=== PATIENT | male | born 1965 | race Caucasian/White ===

== ENCOUNTER 2018-08-29 11:06 | Inpatient (IN) | payer BC ==
--- NOTE | 2018-08-29 12:30 | EDM.PDOC ---
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 He was treated with IV immunoglobulin, but not plasmapheresis. His symptoms have progressively improved, although he is left with right foot paresthesia, bilateral lower extremity weakness, and right hand weakness. The patient walks with a cane. The patient states that he developed cold-like symptoms, including sinus pressure, a cough, and sneezing in June 2018. He saw his PCP around the middle of June. He states that no tests were done, and that he was told that he had a viral illness. An antibiotic, the name of which he does not recall, was prescribed for 10 days, that the patient took as prescribed. He also tried some [id number] sinus, cough, and cold medicines, without relief of symptoms. He then went to the [place] walk in clinic in early July. Again no tests were done, and the patient was again told that he had a viral illness versus seasonal allergies. They recommended nasal flushes and Flonase. The patient still had no relief, therefore he went back to his PCP in mid-July. He states that no tests were done, and no prescriptions were given. He then returned to the the walk-in clinic in late July. Again, he states that no tests were done, and he was again diagnosed with seasonal allergies versus a viral illness. They told him it could last up to 3 months. The patient reports a 10 to 15 pound weight loss since June. He reports myalgias in his shoulders and buttocks, and arthralgias in his shoulders and elbows. 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 His eye pressure has come down from 20 mm Hg to 14 mm Hg, and his prednisolone has been tapered. He reports several episodes of epistaxis since July. Is unclear if he has been experiencing any wheezing; he does not have a history of asthma. He denies Raynaud's phenomenon or abdominal pain. The patient states that over the past 2 weeks, he has developed generalized weakness, dyspnea, oral ulcers, a cough productive of clear sputum, nausea, and anorexia. This past 08/26/2018, he developed numerous purplish lesions on the sole of his distal left foot and under the first MTP of his right foot. He reports pain to his distal left foot, although there is still some paresthesia to the area. He continues to have unimproved paresthesia to his right foot, therefore he does not have pain to his right foot. The patient's PCP is Manny Gonzáles NP, in [place]. The patient would like a referral to a PCP here in [place]. The patient's Neurologist is Dr. Juan David Babin, in [place]. - Related Data Allergies Allergy/AdvReac Type Severity Reaction Status Date / Time No Known Allergies Allergy Verified 08/29/18 11:17 Past Medical History Gastrointestinal History: Reports: GERD Neurological History: Reports: Other (See Below) (Guillain-Bennett diagnosed 2016 , status-post IVIG) Psychiatric History: Reports: Anxiety, Depression - Past Surgical History HEENT Surgical History: Reports: Tonsillectomy Social & Family History - Tobacco Use Smoking Status *Q: Never Smoker Second Hand Smoke Exposure: Yes - Caffeine Use Caffeine Use: Reports: None - Alcohol Use Alcohol Use History: Yes Alcohol Use Frequency: Rarely - Recreational Drug Use Recreational Drug Use: No - Living Situation & Occupation Living situation: Reports: , with Spouse Occupation: Disabled ED ROS GENERAL - Review of Systems Review Of Systems: ROS reveals no pertinent complaints other than HPI. ED EXAM, GENERAL - Physical Exam Exam: See Below Exam Limited By: No Limitations General Appearance: Alert, WD/WN, No Apparent Distress Eye Exam: Bilateral Eye: EOMI, Normal Inspection Ears: Normal External Exam, Normal Canal, Hearing Grossly Normal, Other (Right tympanic membrane likely bulging with clear fluid. No erythema.) Nose: Normal Inspection, Normal Mucosa, No Blood Throat/Mouth: Normal Lips, Normal Teeth, Normal Gums, Normal Voice, No Airway Compromise, Other (There are 3 apthous ulcers; one on each of the underside of his tongue, one on the right buccal membrane of his cheek) Head: Atraumatic, Normocephalic Neck: Normal Inspection, Supple, Non-Tender, Full Range of Motion. No: Lymphadenopathy (L), Lymphadenopathy (R) Respiratory/Chest: No Respiratory Distress, Lungs Clear, Normal Breath Sounds, No Accessory Muscle Use, Crackles (fine bibasilar, Rt > Lt). No: Decreased Breath Sounds, Rhonchi, Wheezing, Prolonged Expiration Cardiovascular: Normal Peripheral Pulses, No Edema, No Gallop, No JVD, No Murmur , No Rub, Tachycardia (regular) Peripheral Pulses: 1+: Posterior Tibial (L), Posterior Tibial (R), Dorsalis Pedis (L), 4+: Radial (L), Radial (R), Dorsalis Pedis (R) GI/Abdominal: Normal Bowel Sounds, Soft, No Organomegaly, No Distention, No Abnormal Bruit, No Mass, Tender (Mild RUQ only. Nontender elsewhere.) (Male) Exam: Deferred Rectal (Males) Exam: Deferred Back Exam: Normal Inspection, Full Range of Motion, NT Extremities: Normal Range of Motion, No Pedal Edema, Normal Capillary Refill, Other (On the distal half of the sole of the patient's left foot, there are numerous purple lesions, barely palpable. Some are pinpoint, some as large as 8 mm, while most are between 3-5 mm in diameter. There is also generalized dusky ecchymosis, particularly to the lateral aspect of the sole of foot, which extends around the purpuric lesions, giving the illusion of confluence. There are only a few lesions on the dorsal aspect of the toes. The patient reports pain to the distal left foot, although he is unable to discriminate whether or not there is tenderness to palpation of the purpuric lesions versus in between the purpuric lesions. The distal left foot is cool to palpation, and I cannot determine capillary refill time. On the sole of the right foot is a single purple lesion, under the first MTP joint. It measures about 1.5 cm in diameter, and is depressible on palpation. The patient reports near complete anesthesia to the distal right foot, therefore it is not tender to palpation. The distal right foot is similarly cool to palpation and is similarly difficult to perceive capillary refill time. There is a bounding right dorsalis pedis pulse, but minimal palpable right posterior tibialis, left dorsalis pedis, or left posterior tibialis pulses.) Neurological: Alert, Oriented, Normal Cognition Psychiatric: Normal Affect Skin Exam: Warm, Dry, Intact, Normal Color, No Rash Course - Vital Signs Last Recorded V/S: Last Vital Signs Temp 36.4 C 08/29/18 11:15 Pulse 114 H 08/29/18 11:15 Resp 16 08/29/18 11:15 BP 144/95 H 08/29/18 11:15 Pulse Ox 94 L 08/29/18 11:15 - Orders/Labs/Meds Orders: Active Orders 24 hr Category Date Time Status ANTIMYELOPEROXIDASE (MPO) ABS [REF] Stat Lab 08/29/18 12:50 Received CULTURE BLOOD [BC] Stat Lab 08/29/18 12:50 Received CULTURE BLOOD [BC] Stat Lab 08/29/18 12:55 Received IGG, SUBCLASSES(1-4) [REF] Stat Lab 08/29/18 12:55 Received IMMUNOGLOBULIN A [REF] Stat Lab 08/29/18 12:55 Received IMMUNOGLOBULIN E, TOTAL [REF] Stat Lab 08/29/18 12:50 Received MISC TEST Stat Lab 08/29/18 12:55 Received Sodium Chloride 0.9% @ 150 MLS/HR (1000ml Bag) Med 08/29/18 19:15 Ordered Sodium Chloride 0.9% [Normal Saline] 1,000 ml IV ASDIRECTED Blood Culture x2 Reflex Set [OM.PC] Stat Oth 08/29/18 11:58 Ordered Medication Orders Sodium Chloride (Normal Saline) 1,000 mls @ 150 mls/hr IV ASDIRECTED GERMANIA Last Admin: 08/29/18 19:25 Dose: 150 mls/hr Labs: Laboratory Tests 08/29/18 08/29/18 08/29/18 Range/Units 12:50 12:50 12:50 WBC 15.04 H (4.23-9.07) K/mm3 RBC 4.10 L (4.63-6.08) M/mm3 Hgb 10.8 L (13.7-17.5) gm/L Hct 34.4 L (40.1-51.0) % MCV 83.9 (79.0-92.2) fl MCH 26.3 (25.7-32.2) pg MCHC 31.4 L (32.2-35.5) g/dl RDW Std Deviation 45.2 H (35.1-43.9) fL Plt Count 763 H (163-337) K/mm3 MPV 8.8 L (9.4-12.3) fl Neutrophils % (Manual) 81 H (40-60) % Band Neutrophils % 0 (0-10) % Lymphocytes % (Manual) 6 L (20-40) % Atypical Lymphs % 0 % Monocytes % (Manual) 7 (2-10) % Eosinophils % (Manual) 5 (0.8-7.0) % Basophils % (Manual) 1 (0.2-1.2) Platelet Estimate Adequate Hypochromasia 1+ slight Anisocytosis 2+ moderate RBC Morph Comment Abnormal ESR 102 H (0-15) mm/hr PT (9.5-12.1) SECONDS INR APTT (24-31) SECONDS Fibrin Degrad Products (<5) ug/mL Sodium 136 (136-145) mEq/L Potassium 4.0 (3.5-5.1) mEq/L Chloride 100 (98-107) mEq/L Carbon Dioxide 21 (21-32) mEq/L Anion Gap 19.0 H (5-15) BUN 53 H (7-18) mg/dL Creatinine 4.6 H (0.7-1.3) mg/dL Est Cr Clr Drug Dosing 21.47 mL/min Estimated GFR (MDRD) 14 (>60) mL/min BUN/Creatinine Ratio 11.5 L (14-18) Glucose 107 H (74-106) mg/dL Calcium 8.6 (8.5-10.1) mg/dL Magnesium 2.4 (1.8-2.4) mg/dl Total Bilirubin 1.0 (0.2-1.0) mg/dL AST 22 (15-37) U/L ALT 27 (16-63) U/L Alkaline Phosphatase 234 H (46-116) U/L C-Reactive Protein (<1.0) mg/dL Total Protein 7.9 (6.4-8.2) g/dl Albumin 2.1 L (3.4-5.0) g/dl Globulin 5.8 gm/dL Albumin/Globulin Ratio 0.4 L (1-2) Urine Color (Yellow) Urine Appearance (Clear) Urine pH (5.0-8.0) Ur Specific [place] (1.005-1.030) Urine Protein (Negative) Urine Glucose (UA) (Negative) Urine Ketones (Negative) Urine Occult Blood (Negative) Urine Nitrite (Negative) Urine Bilirubin (Negative) Urine Urobilinogen (0.2-1.0) Ur Leukocyte Esterase (Negative) Urine RBC (0-5) /hpf Urine WBC (0-5) /hpf Ur Squamous Epith Cells (0-5) /hpf Urine Bacteria (FEW) /hpf Urine Mucus (FEW) /hpf Rheumatoid Factor Scrn (NEGATIVE) Rheumatoid Factor Titer Hepatitis C Antibody (NEGATIVE) 08/29/18 08/29/18 08/29/18 Range/Units 12:50 12:50 12:50 WBC (4.23-9.07) K/mm3 RBC (4.63-6.08) M/mm3 Hgb (13.7-17.5) gm/L Hct (40.1-51.0) % MCV (79.0-92.2) fl MCH (25.7-32.2) pg MCHC (32.2-35.5) g/dl RDW Std Deviation (35.1-43.9) fL Plt Count (163-337) K/mm3 MPV (9.4-12.3) fl Neutrophils % (Manual) (40-60) % Band Neutrophils % (0-10) % Lymphocytes % (Manual) (20-40) % Atypical Lymphs % % Monocytes % (Manual) (2-10) % Eosinophils % (Manual) (0.8-7.0) % Basophils % (Manual) (0.2-1.2) Platelet Estimate Hypochromasia Anisocytosis RBC Morph Comment ESR (0-15) mm/hr PT 12.3 H (9.5-12.1) SECONDS INR 1.13 APTT 27 (24-31) SECONDS Fibrin Degrad Products > 5 but < 20 ug/ml H (<5) ug/mL Sodium (136-145) mEq/L Potassium (3.5-5.1) mEq/L Chloride (98-107) mEq/L Carbon Dioxide (21-32) mEq/L Anion Gap (5-15) BUN (7-18) mg/dL Creatinine (0.7-1.3) mg/dL Est Cr Clr Drug Dosing mL/min Estimated GFR (MDRD) (>60) mL/min BUN/Creatinine Ratio (14-18) Glucose (74-106) mg/dL Calcium (8.5-10.1) mg/dL Magnesium (1.8-2.4) mg/dl Total Bilirubin (0.2-1.0) mg/dL AST (15-37) U/L ALT (16-63) U/L Alkaline Phosphatase (46-116) U/L C-Reactive Protein 28.1 H* (<1.0) mg/dL Total Protein (6.4-8.2) g/dl Albumin (3.4-5.0) g/dl Globulin gm/dL Albumin/Globulin Ratio (1-2) Urine Color (Yellow) Urine Appearance (Clear) Urine pH (5.0-8.0) Ur Specific [place] (1.005-1.030) Urine Protein (Negative) Urine Glucose (UA) (Negative) Urine Ketones (Negative) Urine Occult Blood (Negative) Urine Nitrite (Negative) Urine Bilirubin (Negative) Urine Urobilinogen (0.2-1.0) Ur Leukocyte Esterase (Negative) Urine RBC (0-5) /hpf Urine WBC (0-5) /hpf Ur Squamous Epith Cells (0-5) /hpf Urine Bacteria (FEW) /hpf Urine Mucus (FEW) /hpf Rheumatoid Factor Scrn (NEGATIVE) Rheumatoid Factor Titer Hepatitis C Antibody (NEGATIVE) 08/29/18 08/29/18 08/29/18 Range/Units 12:50 12:50 15:45 WBC (4.23-9.07) K/mm3 RBC (4.63-6.08) M/mm3 Hgb (13.7-17.5) gm/L Hct (40.1-51.0) % MCV (79.0-92.2) fl MCH (25.7-32.2) pg MCHC (32.2-35.5) g/dl RDW Std Deviation (35.1-43.9) fL Plt Count (163-337) K/mm3 MPV (9.4-12.3) fl Neutrophils % (Manual) (40-60) % Band Neutrophils % (0-10) % Lymphocytes % (Manual) (20-40) % Atypical Lymphs % % Monocytes % (Manual) (2-10) % Eosinophils % (Manual) (0.8-7.0) % Basophils % (Manual) (0.2-1.2) Platelet Estimate Hypochromasia Anisocytosis RBC Morph Comment ESR (0-15) mm/hr PT (9.5-12.1) SECONDS INR APTT (24-31) SECONDS Fibrin Degrad Products (<5) ug/mL Sodium (136-145) mEq/L Potassium (3.5-5.1) mEq/L Chloride (98-107) mEq/L Carbon Dioxide (21-32) mEq/L Anion Gap (5-15) BUN (7-18) mg/dL Creatinine (0.7-1.3) mg/dL Est Cr Clr Drug Dosing mL/min Estimated GFR (MDRD) (>60) mL/min BUN/Creatinine Ratio (14-18) Glucose (74-106) mg/dL Calcium (8.5-10.1) mg/dL Magnesium (1.8-2.4) mg/dl Total Bilirubin (0.2-1.0) mg/dL AST (15-37) U/L ALT (16-63) U/L Alkaline Phosphatase (46-116) U/L C-Reactive Protein (<1.0) mg/dL Total Protein (6.4-8.2) g/dl Albumin (3.4-5.0) g/dl Globulin gm/dL Albumin/Globulin Ratio (1-2) Urine Color Yellow (Yellow) Urine Appearance Clear (Clear) Urine pH 5.5 (5.0-8.0) Ur Specific [place] 1.025 (1.005-1.030) Urine Protein 2+ H (Negative) Urine Glucose (UA) Negative (Negative) Urine Ketones Negative (Negative) Urine Occult Blood 2+ H (Negative) Urine Nitrite Negative (Negative) Urine Bilirubin 1+ H (Negative) Urine Urobilinogen 0.2 (0.2-1.0) Ur Leukocyte Esterase Trace H (Negative) Urine RBC 10-20 H (0-5) /hpf Urine WBC 0-5 (0-5) /hpf Ur Squamous Epith Cells 0-5 (0-5) /hpf Urine Bacteria Few (FEW) /hpf Urine Mucus Few (FEW) /hpf Rheumatoid Factor Scrn Positive H (NEGATIVE) Rheumatoid Factor Titer 1:8 Hepatitis C Antibody Negative (NEGATIVE) Meds: Medications Generic Name Dose Route Start Last Admin Trade Name Freq PRN Reason Stop Dose Admin Sodium Chloride 1,000 mls @ 150 mls/hr 08/29/18 19:15 08/29/18 19:25 Normal Saline IV 150 mls/hr ASDIRECTED GER[place]IA Administration Discontinued Medications Generic Name Dose Route Start Last Admin Trade Name Fernando PRN Reason Stop Dose Admin Ceftriaxone Sodium 1 gm/ 100 mls @ 200 mls/hr 08/29/18 19:06 08/29/18 19:25 Sodium Chloride IV 08/29/18 19:35 200 mls/hr ONETIME ONE Administration - Re-Assessments/Exams Free Text/Narrative Re-Assessment/Exam: 08/29/18 12:12 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 He has oral stomatitis, fatigue, weight loss, myalgias, arthralgias, peripheral neuropathy, uveitis in his left eye, possible wheezing, and palpable purpura. I think the most likely candidates include granulomatosis with polyangiitis ( formerly known as Laura's granulomatosis), eosinophilic granulomatosis with polyangiitis (formerly known as Churg-Leonardo syndrome), microscopic polyangiitis, and cryoglobulinemia vasculitis. Less likely candidates would include polyarteritis nodosa, cutaneous polyarteritis nodosa, rheumatoid arthritis, adult Henoch-Schonlein purpura, urticarial vasculitis, or cutaneous small vessel vasculitis. Least likely would be nodular vasculitis. I have ordered an extensive workup that includes a CBC, CMP, magnesium level, ESR, CRP, PT and PTT, hepatitis C antibody, rheumatoid factor, fibrin degradation products, a urinalysis, and a chest x-ray, all of which we will get back today. I have also ordered an ANCA panel that includes a MPO-ANCA, and an immunoglobulin panel, that are all send out tests. The patient does not have a history of a fever, and I hear no murmur, therefore I strongly doubt endocarditis, however, I have ordered 2 sets of blood cultures. 08/29/18 13:27 Two-view chest x-ray is read by Dr. Dc as: 1. Diffuse reticulonodular appearance within both lungs. Recommend treatment as a pneumonia with follow-up chest x-ray strongly recommended 2 weeks after clinical therapy is complete to see if findings persist. 08/29/18 17:03 The patient's WBC count has returned elevated at 15.04 with 0% bandemia and 5% eosinophilia. His H/H are 10.8/34.4. His platelets are significantly elevated at 763,000. The patient's CMP is remarkable for a BUN/Cr elevated at 53/4.6. His alkaline phosphatase is elevated at 234. His albumin is depressed at 2.1. The remainder of his CMP is unremarkable. No prior CMP for comparison. The patient's magnesium level is normal. The patient's coags are grossly unremarkable. The patient's CRP is significantly elevated at 28.1. The patient's ESR is elevated at 102. The patient's hepatitis C antibody is negative. The patient's rheumatoid factor is positive, with a titer of 1:8. The patient's FDP is greater than 5, but less than 20. The patient's urinalysis is remarkable for 2+ protein and 2+ occult blood, with 10-20 RBCs. The above test results were discussed with the patient and his . 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 I explained that I would like to discuss the case with a Bit Sander. The patient's states that she sees Dr. Singh Sanchez at [facility], and would like me to consult her. 08/29/18 18:53 [facility] was contacted. They do not have any Rheumatologists second butler. [facility] was then contacted. They also do not have any Rheumatologists second butler. [facility] was then contacted. They also do not have any Rheumatologists second butler. [facility] was then contacted. They do have a Bit Sander second butler, however, they were paged several times and did not call back. Case then discussed with Jody at [facility] at 18:40. Unfortunately, they do not have any beds available. Case then discussed with Dr. Herman, Hospitalist here, at 18:44. He accepted the patient for admission to the general medical floor. I will write bridge orders, and he will endeavor to contact Dr. Sanchez in the morning. We will treat the patient's abnormal chest x-ray with IV Rocephin. A CT scan of the chest with IV contrast is indicated, however, given the patient's current renal dysfunction, I think it would be prudent to treat him with IV fluid to see if we can improve his kidney function prior to receiving the iodinated contrast. Departure - Departure Time of Disposition: 19:01 Disposition: Admitted As Inpatient 67 Condition: Fair Clinical Impression: Thrombocytosis, Acute renal failure, Rheumatoid factor positive, Elevated C- reactive protein (CRP), Proteinuria, Hematuria, Reticulonodular infiltrate present on imaging of chest, Elevated erythrocyte sedimentation rate - Discharge Information *PRESCRIPTION DRUG MONITORING PROGRAM REVIEWED*: Not Applicable *COPY OF PRESCRIPTION DRUG MONITORING REPORT IN PATIENT KAREY: Not Applicable Referrals: Juan David Babin MD [Ordering Only Provider] - Manny Gonzáles NP [Primary Care Provider] - Singh Sanchez MD [Ordering Only Provider] - - My Orders Last 24 Hours: My Active Orders 08/29/18 11:58 Blood Culture x2 Reflex Set [OM.PC] Stat 08/29/18 12:50 ANTIMYELOPEROXIDASE (MPO) ABS [REF] Stat CULTURE BLOOD [BC] Stat IMMUNOGLOBULIN E, TOTAL [REF] Stat 08/29/18 12:55 CULTURE BLOOD [BC] Stat IGG, SUBCLASSES(1-4) [REF] Stat IMMUNOGLOBULIN A [REF] Stat MISC TEST Stat 08/29/18 19:15 Sodium Chloride 0.9% @ 150 MLS/HR (1000ml Bag) Sodium Chloride 0.9% [Normal Saline] 1,000 ml IV ASDIRECTED - Assessment/Plan Last 24 Hours: My Active Orders 08/29/18 11:58 Blood Culture x2 Reflex Set [OM.PC] Stat 08/29/18 12:50 ANTIMYELOPEROXIDASE (MPO) ABS [REF] Stat CULTURE BLOOD [BC] Stat IMMUNOGLOBULIN E, TOTAL [REF] Stat 08/29/18 12:55 CULTURE BLOOD [BC] Stat IGG, SUBCLASSES(1-4) [REF] Stat IMMUNOGLOBULIN A [REF] Stat MISC TEST Stat 08/29/18 19:15 Sodium Chloride 0.9% @ 150 MLS/HR (1000ml Bag) Sodium Chloride 0.9% [Normal Saline] 1,000 ml IV ASDIRECTED
--- NOTE | 2018-08-29 12:58 | CR ---
Chest: Two views of the chest were obtained. Comparison: No prior chest x-ray. Diffuse reticulonodular appearance seen within both lungs. Heart size is normal. Tortuous thoracic aorta is seen. No acute bony abnormality is appreciated. Impression: 1. Diffuse reticulonodular appearance within both lungs. Recommend treatment as a pneumonia with follow-up chest x-ray strongly recommended 2 weeks after clinical therapy is complete to see if findings persist. Diagnostic code #3
[2018-08-29] MEDS ORDERED: cefTRIAXone 1 GM in Sodium Chloride 0.9% 100 ML IV ONE (19:06)
[2018-08-29] MEDS: Sodium Chloride 0.9% 1,000 ML IV SCH (19:25)
[2018-08-30] MEDS: Sodium Chloride 0.9% 1,000 ML IV SCH ×2 (02:11→09:19)
[2018-08-30] MEDS ORDERED: Ibuprofen 600 MG Tab PO PRN (02:57)
--- NOTE | 2018-08-30 09:55 | PCM.DCSUM1 ---
Discharge Summary - Hospital Course Free Text/Narrative:: This note serves as Admission H&P as well as Discharge Summary. 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 Also reporting ulcerative lesions on oral mucosa and tender papular lesions on left sole. On initial ED workup was found to have Cr of 4.6, positive rheumatoid factor and CRP, Plts at 700K. CXR showed diffuse bilateral interstitial pattern infiltrates. Presentation highly suspicious for autoimmune vasculitis. The patient was placed on the floor pending transfer to a higher level facility. Discussed with accepting physician at [facility], . Accepted for transfer. Diagnosis: Stroke: No - Discharge Data Discharge Date: 08/30/18 Discharge Disposition: DC/Tfer to Acute Hospital 02 Condition: Fair - Discharge Diagnosis/Problem(s) (1) Acute renal failure SNOMED Code(s): 62571856 ICD Code: N17.9 - ACUTE KIDNEY FAILURE, UNSPECIFIED Status: Acute Current Visit: Yes - Discharge Plan *PRESCRIPTION DRUG MONITORING PROGRAM REVIEWED*: Not Applicable *COPY OF PRESCRIPTION DRUG MONITORING REPORT IN PATIENT KAREY: Not Applicable Home Medications: Home Meds . [Unable To Obtain] 1 drop EYEBOTH ASDIRECTED PRN 08/29/18 [History] Cholecalciferol (Vitamin D3) [D3-2000] 2,000 unit PO DAILY 08/29/18 [History] Cyanocobalamin (Vitamin B-12) [B-12] 2,500 mcg SL DAILY 08/29/18 [History] Dorzolamide/Timolol [Cosopt 2%-0.5% Ophth Soln] 1 drop EYELF BID 08/29/18 [ History] Escitalopram [Lexapro] 10 mg PO DAILY 08/29/18 [History] LORazepam [Ativan] 0.5 mg PO BEDTIME 08/29/18 [History] Loratadine 10 mg PO DAILY 08/29/18 [History] Magnesium Oxide/Mag AA Chelate [Magnesium] 300 mg PO DAILY 08/29/18 [History] Multivit-Min/FA/Vit K/Lycopene [One-A-Day Men's 50 Plus Tablet] 1 each PO DAILY 08/29/18 [History] Pantoprazole [ProTONIX] 40 mg PO DAILY 08/29/18 [History] prednisoLONE acetate [Pred Forte 1% Ophth Susp] 1 drop EYELF BID 08/29/18 [ History] Sodium Chloride 0.9% [Normal Saline] 1,000 ml IV ASDIRECTED bag 08/30/18 [Rx] Referrals: Juan David Babin MD [Ordering Only Provider] - Singh Sanchez MD [Ordering Only Provider] - Manny Gonzáles NP [Primary Care Provider] - - Discharge Summary/Plan Comment DC Time >30 min.: Yes - General Info Date of Service: 08/30/18 - Review of Systems General: Reports: Weakness, Fatigue, Malaise. Denies: Appetite HEENT: Reports: Eye Pain Pulmonary: Reports: Cough. Denies: Hemoptysis Cardiovascular: Denies: Chest Pain, Palpitations, Edema Gastrointestinal: Denies: Abdominal Pain, Constipation, Nausea, Vomiting Genitourinary: Denies: Dysuria, Frequency Skin: Reports: Rash (as discribed in HPI.) - Patient Data Vitals - Most Recent: Last Vital Signs Temp 97.2 F 08/30/18 07:40 Pulse 81 08/30/18 07:40 Resp 14 08/30/18 07:40 BP 137/85 08/30/18 07:40 Pulse Ox 96 08/30/18 07:40 Weight - Most Recent: 195 lb 11.2 oz I&O - Last 24 hours: Intake & Output 08/29/18 08/30/18 08/30/18 19:59 03:59 11:59 Intake Total 500 Output Total 300 Balance 200 Lab Results - Last 24 hrs: Laboratory Results - last 24 hr 08/29/18 08/29/18 08/29/18 Range/Units 12:50 12:50 12:50 WBC 15.04 H (4.23-9.07) K/mm3 RBC 4.10 L (4.63-6.08) M/mm3 Hgb 10.8 L (13.7-17.5) gm/L Hct 34.4 L (40.1-51.0) % MCV 83.9 (79.0-92.2) fl MCH 26.3 (25.7-32.2) pg MCHC 31.4 L (32.2-35.5) g/dl RDW Std Deviation 45.2 H (35.1-43.9) fL Plt Count 763 H (163-337) K/mm3 MPV 8.8 L (9.4-12.3) fl Neutrophils % (Manual) 81 H (40-60) % Band Neutrophils % 0 (0-10) % Lymphocytes % (Manual) 6 L (20-40) % Atypical Lymphs % 0 % Monocytes % (Manual) 7 (2-10) % Eosinophils % (Manual) 5 (0.8-7.0) % Basophils % (Manual) 1 (0.2-1.2) Platelet Estimate Adequate Hypochromasia 1+ slight Anisocytosis 2+ moderate RBC Morph Comment Abnormal ESR 102 H (0-15) mm/hr PT (9.5-12.1) SECONDS INR APTT (24-31) SECONDS Fibrin Degrad Products (<5) ug/mL Sodium 136 (136-145) mEq/L Potassium 4.0 (3.5-5.1) mEq/L Chloride 100 (98-107) mEq/L Carbon Dioxide 21 (21-32) mEq/L Anion Gap 19.0 H (5-15) BUN 53 H (7-18) mg/dL Creatinine 4.6 H (0.7-1.3) mg/dL Est Cr Clr Drug Dosing 21.47 mL/min Estimated GFR (MDRD) 14 (>60) mL/min BUN/Creatinine Ratio 11.5 L (14-18) Glucose 107 H (74-106) mg/dL Calcium 8.6 (8.5-10.1) mg/dL Magnesium 2.4 (1.8-2.4) mg/dl Total Bilirubin 1.0 (0.2-1.0) mg/dL AST 22 (15-37) U/L ALT 27 (16-63) U/L Alkaline Phosphatase 234 H (46-116) U/L C-Reactive Protein (<1.0) mg/dL Total Protein 7.9 (6.4-8.2) g/dl Albumin 2.1 L (3.4-5.0) g/dl Globulin 5.8 gm/dL Albumin/Globulin Ratio 0.4 L (1-2) Urine Color (Yellow) Urine Appearance (Clear) Urine pH (5.0-8.0) Ur Specific Brewster (1.005-1.030) Urine Protein (Negative) Urine Glucose (UA) (Negative) Urine Ketones (Negative) Urine Occult Blood (Negative) Urine Nitrite (Negative) Urine Bilirubin (Negative) Urine Urobilinogen (0.2-1.0) Ur Leukocyte Esterase (Negative) Urine RBC (0-5) /hpf Urine WBC (0-5) /hpf Ur Squamous Epith Cells (0-5) /hpf Urine Bacteria (FEW) /hpf Urine Mucus (FEW) /hpf IgA (40-350) mg/dL Rheumatoid Factor Scrn (NEGATIVE) Rheumatoid Factor Titer Hepatitis C Antibody (NEGATIVE) 08/29/18 08/29/18 08/29/18 Range/Units 12:50 12:50 12:50 WBC (4.23-9.07) K/mm3 RBC (4.63-6.08) M/mm3 Hgb (13.7-17.5) gm/L Hct (40.1-51.0) % MCV (79.0-92.2) fl MCH (25.7-32.2) pg MCHC (32.2-35.5) g/dl RDW Std Deviation (35.1-43.9) fL Plt Count (163-337) K/mm3 MPV (9.4-12.3) fl Neutrophils % (Manual) (40-60) % Band Neutrophils % (0-10) % Lymphocytes % (Manual) (20-40) % Atypical Lymphs % % Monocytes % (Manual) (2-10) % Eosinophils % (Manual) (0.8-7.0) % Basophils % (Manual) (0.2-1.2) Platelet Estimate Hypochromasia Anisocytosis RBC Morph Comment ESR (0-15) mm/hr PT 12.3 H (9.5-12.1) SECONDS INR 1.13 APTT 27 (24-31) SECONDS Fibrin Degrad Products > 5 but < 20 ug/ml H (<5) ug/mL Sodium (136-145) mEq/L Potassium (3.5-5.1) mEq/L Chloride (98-107) mEq/L Carbon Dioxide (21-32) mEq/L Anion Gap (5-15) BUN (7-18) mg/dL Creatinine (0.7-1.3) mg/dL Est Cr Clr Drug Dosing mL/min Estimated GFR (MDRD) (>60) mL/min BUN/Creatinine Ratio (14-18) Glucose (74-106) mg/dL Calcium (8.5-10.1) mg/dL Magnesium (1.8-2.4) mg/dl Total Bilirubin (0.2-1.0) mg/dL AST (15-37) U/L ALT (16-63) U/L Alkaline Phosphatase (46-116) U/L C-Reactive Protein 28.1 H* (<1.0) mg/dL Total Protein (6.4-8.2) g/dl Albumin (3.4-5.0) g/dl Globulin gm/dL Albumin/Globulin Ratio (1-2) Urine Color (Yellow) Urine Appearance (Clear) Urine pH (5.0-8.0) Ur Specific Brewster (1.005-1.030) Urine Protein (Negative) Urine Glucose (UA) (Negative) Urine Ketones (Negative) Urine Occult Blood (Negative) Urine Nitrite (Negative) Urine Bilirubin (Negative) Urine Urobilinogen (0.2-1.0) Ur Leukocyte Esterase (Negative) Urine RBC (0-5) /hpf Urine WBC (0-5) /hpf Ur Squamous Epith Cells (0-5) /hpf Urine Bacteria (FEW) /hpf Urine Mucus (FEW) /hpf IgA (40-350) mg/dL Rheumatoid Factor Scrn (NEGATIVE) Rheumatoid Factor Titer Hepatitis C Antibody (NEGATIVE) 08/29/18 08/29/18 08/29/18 Range/Units 12:50 12:50 12:55 WBC (4.23-9.07) K/mm3 RBC (4.63-6.08) M/mm3 Hgb (13.7-17.5) gm/L Hct (40.1-51.0) % MCV (79.0-92.2) fl MCH (25.7-32.2) pg MCHC (32.2-35.5) g/dl RDW Std Deviation (35.1-43.9) fL Plt Count (163-337) K/mm3 MPV (9.4-12.3) fl Neutrophils % (Manual) (40-60) % Band Neutrophils % (0-10) % Lymphocytes % (Manual) (20-40) % Atypical Lymphs % % Monocytes % (Manual) (2-10) % Eosinophils % (Manual) (0.8-7.0) % Basophils % (Manual) (0.2-1.2) Platelet Estimate Hypochromasia Anisocytosis RBC Morph Comment ESR (0-15) mm/hr PT (9.5-12.1) SECONDS INR APTT (24-31) SECONDS Fibrin Degrad Products (<5) ug/mL Sodium (136-145) mEq/L Potassium (3.5-5.1) mEq/L Chloride (98-107) mEq/L Carbon Dioxide (21-32) mEq/L Anion Gap (5-15) BUN (7-18) mg/dL Creatinine (0.7-1.3) mg/dL Est Cr Clr Drug Dosing mL/min Estimated GFR (MDRD) (>60) mL/min BUN/Creatinine Ratio (14-18) Glucose (74-106) mg/dL Calcium (8.5-10.1) mg/dL Magnesium (1.8-2.4) mg/dl Total Bilirubin (0.2-1.0) mg/dL AST (15-37) U/L ALT (16-63) U/L Alkaline Phosphatase (46-116) U/L C-Reactive Protein (<1.0) mg/dL Total Protein (6.4-8.2) g/dl Albumin (3.4-5.0) g/dl Globulin gm/dL Albumin/Globulin Ratio (1-2) Urine Color (Yellow) Urine Appearance (Clear) Urine pH (5.0-8.0) Ur Specific Brewster (1.005-1.030) Urine Protein (Negative) Urine Glucose (UA) (Negative) Urine Ketones (Negative) Urine Occult Blood (Negative) Urine Nitrite (Negative) Urine Bilirubin (Negative) Urine Urobilinogen (0.2-1.0) Ur Leukocyte Esterase (Negative) Urine RBC (0-5) /hpf Urine WBC (0-5) /hpf Ur Squamous Epith Cells (0-5) /hpf Urine Bacteria (FEW) /hpf Urine Mucus (FEW) /hpf IgA 184 (40-350) mg/dL Rheumatoid Factor Scrn Positive H (NEGATIVE) Rheumatoid Factor Titer 1:8 Hepatitis C Antibody Negative (NEGATIVE) 08/29/18 08/30/18 Range/Units 15:45 05:44 WBC (4.23-9.07) K/mm3 RBC (4.63-6.08) M/mm3 Hgb (13.7-17.5) gm/L Hct (40.1-51.0) % MCV (79.0-92.2) fl MCH (25.7-32.2) pg MCHC (32.2-35.5) g/dl RDW Std Deviation (35.1-43.9) fL Plt Count (163-337) K/mm3 MPV (9.4-12.3) fl Neutrophils % (Manual) (40-60) % Band Neutrophils % (0-10) % Lymphocytes % (Manual) (20-40) % Atypical Lymphs % % Monocytes % (Manual) (2-10) % Eosinophils % (Manual) (0.8-7.0) % Basophils % (Manual) (0.2-1.2) Platelet Estimate Hypochromasia Anisocytosis RBC Morph Comment ESR (0-15) mm/hr PT (9.5-12.1) SECONDS INR APTT (24-31) SECONDS Fibrin Degrad Products (<5) ug/mL Sodium 136 (136-145) mEq/L Potassium 4.0 (3.5-5.1) mEq/L Chloride 101 (98-107) mEq/L Carbon Dioxide 20 L (21-32) mEq/L Anion Gap 19.0 H (5-15) BUN 54 H (7-18) mg/dL Creatinine 4.9 H (0.7-1.3) mg/dL Est Cr Clr Drug Dosing 20.16 mL/min Estimated GFR (MDRD) 13 (>60) mL/min BUN/Creatinine Ratio 11.0 L (14-18) Glucose 101 (74-106) mg/dL Calcium 8.4 L (8.5-10.1) mg/dL Magnesium (1.8-2.4) mg/dl Total Bilirubin (0.2-1.0) mg/dL AST (15-37) U/L ALT (16-63) U/L Alkaline Phosphatase (46-116) U/L C-Reactive Protein (<1.0) mg/dL Total Protein (6.4-8.2) g/dl Albumin (3.4-5.0) g/dl Globulin gm/dL Albumin/Globulin Ratio (1-2) Urine Color Yellow (Yellow) Urine Appearance Clear (Clear) Urine pH 5.5 (5.0-8.0) Ur Specific Brewster 1.025 (1.005-1.030) Urine Protein 2+ H (Negative) Urine Glucose (UA) Negative (Negative) Urine Ketones Negative (Negative) Urine Occult Blood 2+ H (Negative) Urine Nitrite Negative (Negative) Urine Bilirubin 1+ H (Negative) Urine Urobilinogen 0.2 (0.2-1.0) Ur Leukocyte Esterase Trace H (Negative) Urine RBC 10-20 H (0-5) /hpf Urine WBC 0-5 (0-5) /hpf Ur Squamous Epith Cells 0-5 (0-5) /hpf Urine Bacteria Few (FEW) /hpf Urine Mucus Few (FEW) /hpf IgA (40-350) mg/dL Rheumatoid Factor Scrn (NEGATIVE) Rheumatoid Factor Titer Hepatitis C Antibody (NEGATIVE) Med Orders - Current: Current Medications Sodium Chloride (Normal Saline) 1,000 mls @ 150 mls/hr IV ASDIRECTED [place] Last Admin: 08/30/18 09:19 Dose: 150 mls/hr Discontinued Medications Ceftriaxone Sodium 1 gm/ (Sodium Chloride) 100 mls @ 200 mls/hr IV ONETIME ONE Stop: 08/29/18 19:35 Last Admin: 08/29/18 19:25 Dose: 200 mls/hr Ibuprofen (Motrin) 600 mg PO Q6H PRN PRN Reason: Pain/Fever Last Admin: 08/30/18 03:13 Dose: 600 mg - Exam General: Reports: Alert, Oriented, Cooperative, No Acute Distress HEENT: Reports: Pupils Reactive, EOMI Neck: Reports: Supple, Trachea Midline Lungs: Reports: Clear to Auscultation, Normal Respiratory Effort, Crackles Cardiovascular: Reports: Regular Rate, Regular Rhythm, No Murmurs GI/Abdominal Exam: Normal Bowel Sounds, Soft, Non-Tender Extremities: Other (nonblanching papular lesions left sole.) Neurological: Reports: Normal Speech, Cranial Nerves Intact Psy/Mental Status: Reports: Alert, Normal Affect
[2018-08-30] MEDS ORDERED: LORazepam 0.5 MG Tab PO ONE (11:00)
== END 2018-08-30 11:01 | DRG 346 ==
LOC: JD.ED 11:06 → JD.MS 20:21
PROVIDERS: ADMIT Internal Medicine; ATTEND Internal Medicine
DX: M31.31 Wegener's granulomatosis with renal involvement (principal); G61.0 Guillain-Barre syndrome; N17.9 Acute kidney failure, unspecified; G62.9 Polyneuropathy, unspecified; K21.9 Gastro-esophageal reflux disease without esophagitis; F41.9 Anxiety disorder, unspecified; F32.9 Major depressive disorder, single episode, unspecified; K12.1 Other forms of stomatitis; D47.3 Essential (hemorrhagic) thrombocythemia; R79.82 Elevated C-reactive protein (CRP); R80.9 Proteinuria, unspecified; R31.9 Hematuria, unspecified
CPT/HCPCS: 36415; 71046; 71046-26; 80048; 80053; 81001; 82784; 82785; 82787; 83520; 83735; 85007; 85027; 85362; 85610; 85652; 85730; 86140; 86430; 86803; 87040; 96365; 99285; 99285-25; A9270-GY; J0696; J7030; J7040

== ENCOUNTER 2020-07-09 02:55 | Emergency (ER) | payer BC ==
[2020-07-09] MEDS ORDERED: Sodium Chloride 0.9% 1,000 ML IV ONE (03:32)
--- NOTE | 2020-07-09 03:34 | EDM.PDOC ---
<NickyUsman márquez Juilan - Last Filed: 07/09/20 05:46> ED HPI GENERAL MEDICAL PROBLEM - General Chief Complaint: Fever Stated Complaint: DANILO AMB Time Seen by Provider: 07/09/20 03:07 Source of Information: Reports: Patient, Family () History Limitations: Reports: No Limitations - History of Present Illness INITIAL COMMENTS - FREE TEXT/NARRATIVE: Mr. 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 The patient's tells me that he was soon started on mycophenolate (CellCept), on which he remained for about 6 months before being switched to cyclophosphamide (Cytoxan), primarily due to adverse side effects. He has been receiving monthly IVIG, most recently this past 07/06/2020 however, because of concerns that the cyclophosphamide was not effective enough, the cyclophosphamide was then discontinued and mycophenolate restarted Monday afternoon, 07/07/2020. The patient is also on chronic prednisone with concomitant Bactrim. The patient's tells me that the patient has been generally weak and achy all week. He then developed nausea with an episode of emesis yesterday morning, 07/08/2020, and yesterday evening, and had watery diarrhea all day yesterday. He took Tylenol on numerous occasions yesterday. He was then found to have a temperature of 100.5 degrees around 00:45 this morning, and 102 degrees around 02:00, wherefore the patient's called EMS. She also notes that he was recently prescribed zolpidem, taking it tonight for the first time. Here in the ED, the patient's initial BP is found to be elevated at 157/98, with tachycardia of 116 bpm, and tachypnea of 30 rpm. He is afebrile, saturating 94% on room air. He is somnolent but arousable to voice, and does not appear to be in any acute distress. Prior to this week, the patient denies having a recent fever, chills, sore throat, ear pain, nasal or sinus congestion, cough, dyspnea, chest pain, palpitations, nausea, vomiting, constipation, diarrhea, abdominal pain, urinary symptoms, recent weight gain or weight loss, recent bloody bowel movements or black bowel movements, recent joint aches, headaches, or rashes. The patient received his first dose of the Moderna COVID-19 vaccine on 06/10/2020. He has not yet received his second dose. The patient's PCP is Dr. Noble Wolf. His Medical Driver is Dr. Singh Sanchez. His Neurologist is Dr. Juan David Babin. - Related Data Allergies Allergy/AdvReac Type Severity Reaction Status Date / Time No Known Allergies Allergy Verified 07/09/20 03:04 Home Meds: Home Meds . [Unable To Obtain] 1 drop EYEBOTH ASDIRECTED PRN 08/29/18 [History] Cholecalciferol (Vitamin D3) [D3-2000] 2,000 unit PO DAILY 08/29/18 [History] Cyanocobalamin (Vitamin B-12) [B-12] 2,500 mcg SL DAILY 08/29/18 [History] Dorzolamide/Timolol [Cosopt 2%-0.5% Ophth Soln] 1 drop EYELF BID 08/29/18 [History] Escitalopram [Lexapro] 15 mg PO DAILY 08/29/18 [History] Magnesium Oxide/Magnesium [Magnesium] 300 mg PO DAILY 08/29/18 [History] Multivit-Min/Folic/Vit K/Lycop [One-A-Day Men's 50 Plus Tablet] 1 each PO DAILY 08/29/18 [History] Pantoprazole [ProTONIX] 40 mg PO DAILY 08/29/18 [History] Sodium Chloride 0.9% [Normal Saline] 1,000 ml IV ASDIRECTED bag 08/30/18 [Rx] ALPRAZolam [Xanax] 1 tab PO BEDTIME 07/09/20 [History] Cyclobenzaprine [Flexeril] 1 tab PO ASDIRECTED PRN 07/09/20 [History] Hydrocodone/Acetaminophen [Hydrocodone-Acetamin 10-325 mg] 1 tab PO Q4H PRN 07/09/20 [History] NIFEdipine [Procardia Xl] 1 tab PO DAILY 07/09/20 [History] Sennosides/Docusate Sodium [Senna-Docusate Sodium Tablet] 1 tab PO BID 07/09/20 [History] Sulfamethoxazole/Trimethoprim [Bactrim Ds Tablet] 1 tab PO ASDIRECTED 07/09/20 [History] Triamcinolone Acetonide [Kenalog 0.1% Crm] 1 gm TOP QID 07/09/20 [History] Zolpidem [Ambien] 10 mg PO BEDTIME 07/09/20 [History] mycophenolate mofetiL [Cellcept] 2,000 mg PO ACDINNER 07/09/20 [History] predniSONE [Prednisone] 10 mg PO ASDIRECTED 07/09/20 [History] Past Medical History Cardiovascular History: Reports: Heart Failure (systolic and diastolic) Gastrointestinal History: Reports: GERD Genitourinary History: Reports: Chronic Renal Insuffiency Neurological History: Reports: Other (See Below) (Fredy diego'davide 2016) Psychiatric History: Reports: Anxiety, Depression Immunologic History: Reports: Other (See Below) (Granulomatosis with polyangiitis (formerly known as Laura's granulomatosis)) - Infectious Disease History Infectious Disease History: Reports: Chicken Pox - Past Surgical History HEENT Surgical History: Reports: Tonsillectomy Male Surgical History: Reports: Circumcision Musculoskeletal Surgical History: Reports: Amputation (distal left foot) Dermatological Surgical History: Reports: None Social & Family History - Tobacco Use Tobacco Use Status *Q: Never Tobacco User Tobacco Use Within Last Twelve Months: Smokeless Tobacco (Chews 1/3 can/day since 26 yrs old) Second Hand Smoke Exposure: No - Caffeine Use Caffeine Use: Reports: Soda - Alcohol Use Alcohol Use History: Yes Alcohol Use Frequency: Rarely - Recreational Drug Use Recreational Drug Use: No - Living Situation & Occupation Living situation: Reports: , with Spouse Occupation: Disabled ED ROS GENERAL - Review of Systems Review Of Systems: Comprehensive ROS is negative, except as noted in HPI. ED EXAM, GENERAL - Physical Exam Exam: See Below Exam Limited By: No Limitations General Appearance: WD/WN, No Apparent Distress, Lethargic Eye Exam: Bilateral Eye: EOMI, Normal Inspection Ears: Normal External Exam, Hearing Grossly Normal Nose: Normal Inspection Throat/Mouth: Normal Inspection, Normal Lips, Normal Voice, No Airway Compromise Head: Atraumatic, Normocephalic Neck: Normal Inspection, Full Range of Motion Respiratory/Chest: No Respiratory Distress, Lungs Clear, Normal Breath Sounds, No Accessory Muscle Use Cardiovascular: Normal Peripheral Pulses, No Edema, No Gallop, No JVD, No Murmur, No Rub, Tachycardia (regular) Peripheral Pulses: 3+: Radial (L), Radial (R) GI/Abdominal: Normal Bowel Sounds, Soft, Non-Tender, No Organomegaly, No Distention, No Abnormal Bruit, No Mass Back Exam: Normal Inspection, Full Range of Motion, NT Extremities: Normal Range of Motion, No Pedal Edema, Normal Capillary Refill, Other (S/P distal left foot amputation) Neurological: Oriented, No Motor/Sensory Deficits, Other (Somnolent but arousable) Psychiatric: Normal Affect Skin Exam: Warm, Dry, Intact, Normal Color, No Rash Course - Re-Assessments/Exams Free Text/Narrative Re-Assessment/Exam: 07/09/20 03:28 As above, the patient, who was 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 He has been generally weak and achy all week, then had nausea with 2 episodes of emesis yesterday, and watery diarrhea all day yesterday, before developing a fever up to 102 degrees around 2:00 this morning, symptoms similar to what led him to be taken off of mycophenolate last time. He is afebrile here in the ED. No recent cough, dyspnea, chest pain, palpitations, abdominal pain, or urinary symptoms. His physical exam is grossly unremarkable. I have ordered a work-up that includes several blood tests, 2 sets of blood cultures, an ABG, a urinalysis, a swab for the SARS-CoV-2 virus and influenza, and a portable chest x-ray. In the meantime, the patient will be given a bolus of IV fluid. 07/09/20 03:54 The patient's swab for the SARS-CoV-2 virus has returned positive. 07/09/20 05:[address] Cornell, and care of the patient turned over to him at this time, for change of shift. Departure - Departure Disposition: DC/Tfer to [facility] 02 Clinical Impression: COVID-19, Immunosuppressed status, Hypoxia, Hypomagnesemia Sepsis Qualifiers: Sepsis type: sepsis due to unspecified organism Sepsis acute organ dysfunction status: unspecified Qualified Code(s): A41.9 - Sepsis, unspecified organism Pneumonia Qualifiers: Pneumonia type: due to unspecified organism Laterality: right Lung location: lower lobe of lung Qualified Code(s): J18.9 - Pneumonia, unspecified organism Chronic renal failure Qualifiers: Chronic kidney disease stage: unspecified stage Qualified Code(s): N18.9 - Chronic kidney disease, unspecified Wegeners granulomatosis Qualifiers: Granulomatosis renal involvement: with renal involvement Qualified Code(s): M31.31 - Laura's granulomatosis with renal involvement - Discharge Information Referrals: Noble Wolf MD [Primary Care Provider] - Forms: ED Department Discharge Sepsis Event Note (ED) - Evaluation Sepsis Screening Result: Possible Sepsis Risk <Almas Cornell - Last Filed: 07/09/20 06:58> #1 Interpretation EKG Date: 07/09/20 Time: 03:11 Rhythm: Other (sinus tachycardia) Rate (Beats/Min): 114 [place]: LAD-Left [place] Deviation P-Wave: Present QRS: Normal ST-T: Normal QT: Normal Course - Vital Signs Last Recorded V/S: Last Vital Signs Temp 100.5 F 07/09/20 03:00 Pulse 121 H 07/09/20 06:10 Resp 18 07/09/20 06:10 BP 147/82 H 07/09/20 06:10 Pulse Ox 93 L 07/09/20 06:10 - Orders/Labs/Meds Orders: Active Orders 24 hr Category Date Time Status EKG Documentation Completion [RC] STAT Care 07/09/20 03:25 Active Chest 1V Frontal [CR] Stat Exams 07/09/20 03:25 Taken CULTURE BLOOD [BC] Stat Lab 07/09/20 03:06 Received CULTURE BLOOD [BC] Stat Lab 07/09/20 04:29 Received Blood Culture x2 Reflex Set [OM.PC] Stat Oth 07/09/20 03:25 Ordered Labs: Laboratory Tests 07/09/20 07/09/20 07/09/20 Range/Units 03:05 03:06 03:06 WBC 5.49 (4.23-9.07) K/mm3 RBC 3.77 L (4.63-6.08) M/mm3 Hgb 11.9 L (13.7-17.5) gm/dl Hct 36.3 L (40.1-51.0) % MCV 96.3 H (79.0-92.2) fl MCH 31.6 (25.7-32.2) pg MCHC 32.8 (32.2-35.5) g/dl RDW Std Deviation 53.4 H (35.1-43.9) fL Plt Count 193 D (163-337) K/mm3 MPV 9.8 (9.4-12.3) fl Neutrophils % (Manual) 81 H (40-60) % Band Neutrophils % 5 (0-10) % Lymphocytes % (Manual) 2 L (20-40) % Atypical Lymphs % 0 % Monocytes % (Manual) 12 H (2-10) % Eosinophils % (Manual) 0 L (0.8-7.0) % Basophils % (Manual) 0 L (0.2-1.2) Platelet Estimate Adequate RBC Morph Comment Normal Puncture Site ABG pH (7.35-7.45) ABG pCO2 (35.0-45.0) mmHg ABG pO2 (80.0-100.0) mmHg ABG HCO3 (22.0-26.0) meq/L ABG O2 Saturation (96.0-97.0) % ABG Base Excess (-2-2.0) Joseph Test A-a Gradient mmHg O2 Delivery Device Oxygen Flow Rate FiO2 (21.00-100.00) % Sodium 138 (136-145) mEq/L Potassium 4.4 (3.5-5.1) mEq/L Chloride 101 (98-107) mEq/L Carbon Dioxide 17 L (21-32) mEq/L Anion Gap 24.4 H (5-15) BUN 27 H (7-18) mg/dL Creatinine 3.2 H (0.7-1.3) mg/dL Est Cr Clr Drug Dosing 30.17 mL/min Estimated GFR (MDRD) 20 (>60) mL/min BUN/Creatinine Ratio 8.4 L (14-18) Glucose 107 H (74-106) mg/dL Lactic Acid (0.4-2.0) mmol/L Calcium 8.3 L (8.5-10.1) mg/dL Magnesium 1.5 L (1.8-2.4) mg/dl Total Bilirubin 0.5 (0.2-1.0) mg/dL AST 60 H (15-37) U/L ALT 54 (16-63) U/L Alkaline Phosphatase 112 (46-116) U/L Total Protein 8.6 H (6.4-8.2) g/dl Albumin 3.5 (3.4-5.0) g/dl Globulin 5.1 gm/dL Albumin/Globulin Ratio 0.7 L (1-2) Urine Color (Yellow) Urine Appearance (Clear) Urine pH (5.0-8.0) Ur Specific [place] (1.005-1.030) Urine Protein (Negative) Urine Glucose (UA) (Negative) Urine Ketones (Negative) Urine Occult Blood (Negative) Urine Nitrite (Negative) Urine Bilirubin (Negative) Urine Urobilinogen (0.2-1.0) Ur Leukocyte Esterase (Negative) Urine RBC (0-5) /hpf Urine WBC (0-5) /hpf Ur Squamous Epith Cells (0-5) /hpf Urine Bacteria (FEW) /hpf Urine Mucus (FEW) /hpf Influenza Type A RNA Negative (NEGATIVE) Influenza Type B RNA Negative (NEGATIVE) SARS-CoV-2 RNA (HENNY) Positive H (NEGATIVE) 07/09/20 07/09/20 07/09/20 Range/Units 03:06 03:34 04:15 WBC (4.23-9.07) K/mm3 RBC (4.63-6.08) M/mm3 Hgb (13.7-17.5) gm/dl Hct (40.1-51.0) % MCV (79.0-92.2) fl MCH (25.7-32.2) pg MCHC (32.2-35.5) g/dl RDW Std Deviation (35.1-43.9) fL Plt Count (163-337) K/mm3 MPV (9.4-12.3) fl Neutrophils % (Manual) (40-60) % Band Neutrophils % (0-10) % Lymphocytes % (Manual) (20-40) % Atypical Lymphs % % Monocytes % (Manual) (2-10) % Eosinophils % (Manual) (0.8-7.0) % Basophils % (Manual) (0.2-1.2) Platelet Estimate RBC Morph Comment Puncture Site Rt radial ABG pH 7.40 (7.35-7.45) ABG pCO2 24.9 L (35.0-45.0) mmHg ABG pO2 59.0 L (80.0-100.0) mmHg ABG HCO3 15.1 L (22.0-26.0) meq/L ABG O2 Saturation 90.3 L (96.0-97.0) % ABG Base Excess -8.0 L (-2-2.0) Joseph Test Positive A-a Gradient 60 mmHg O2 Delivery Device Room air Oxygen Flow Rate 0.0 FiO2 21.00 (21.00-100.00) % Sodium (136-145) mEq/L Potassium (3.5-5.1) mEq/L Chloride (98-107) mEq/L Carbon Dioxide (21-32) mEq/L Anion Gap (5-15) BUN (7-18) mg/dL Creatinine (0.7-1.3) mg/dL Est Cr Clr Drug Dosing mL/min Estimated GFR (MDRD) (>60) mL/min BUN/Creatinine Ratio (14-18) Glucose (74-106) mg/dL Lactic Acid 1.6 (0.4-2.0) mmol/L Calcium (8.5-10.1) mg/dL Magnesium (1.8-2.4) mg/dl Total Bilirubin (0.2-1.0) mg/dL AST (15-37) U/L ALT (16-63) U/L Alkaline Phosphatase (46-116) U/L Total Protein (6.4-8.2) g/dl Albumin (3.4-5.0) g/dl Globulin gm/dL Albumin/Globulin Ratio (1-2) Urine Color Yellow (Yellow) Urine Appearance Clear (Clear) Urine pH 6.0 (5.0-8.0) Ur Specific [place] 1.020 (1.005-1.030) Urine Protein 3+ H (Negative) Urine Glucose (UA) Negative (Negative) Urine Ketones Negative (Negative) Urine Occult Blood 1+ H (Negative) Urine Nitrite Negative (Negative) Urine Bilirubin Negative (Negative) Urine Urobilinogen 0.2 (0.2-1.0) Ur Leukocyte Esterase Negative (Negative) Urine RBC 0-5 (0-5) /hpf Urine WBC Not seen (0-5) /hpf Ur Squamous Epith Cells Not seen (0-5) /hpf Urine Bacteria Rare (FEW) /hpf Urine Mucus Rare (FEW) /hpf Influenza Type A RNA (NEGATIVE) Influenza Type B RNA (NEGATIVE) SARS-CoV-2 RNA (HENNY) (NEGATIVE) Meds: Medications Discontinued Medications Generic Name Dose Route Start Last Admin Trade Name Freq PRN Reason Stop Dose Admin Sodium Chloride 1,000 mls @ 999 mls/hr 07/09/20 03:32 07/09/20 03:40 Normal Saline IV 07/09/20 04:32 999 mls/hr ONETIME ONE Administration - Re-Assessments/Exams Free Text/Narrative Re-Assessment/Exam: 07/09/20 06:[address] Saunders. His WBC was normal. His Hgb was low at 11.9. His pH was normal at 7.4. His pCO2 is low at 24.9. His pO2 was 59. When he sleeps his oxygen saturations go down to 84%. He is on 4L by nasal cannula. His anion gap is elevated at 24.4. His creatinine is elevated at 3.2. In the past this has been higher. His lactic acid is normal at 1.6. His magnesium is low at 1.5. His AST is elevated at 60. His UA shows no UTI. His influenza A and B are negative. He is COVID 19 positive. 07/09/20 06:53 This patient is complex due to his immunosuppression and Laura's disease. He would do better in [place]. I called [facility] and talked with Dr Claudio the hospitalist cheese production supervisor and he accepted the patient. We both agreed he is septic and this could be COVID pneumonia or bacterial pneumonia. He did recommend rocphin 2 grams IV, remdesevir IV, decadron 6mg IV and magnesium 2 grams IV. I will send the patient by ambulance. Departure - Departure Time of Disposition: 07:00 Condition: Poor Sepsis Event Note (ED) - Focused Exam Vital Signs: Vital Signs Temp Pulse Resp BP Pulse Ox 07/09/20 06:10 121 H 18 147/82 H 93 L 07/09/20 03:00 100.5 F 116 H 30 H 157/98 H 94 L
[2020-07-09 03:54] LABS: CORONAVIRUS COVID-19 NAA POSITIVE (NEGATIVE)
[2020-07-09] MEDS ORDERED: cefTRIAXone 2 GM in Sodium Chloride 0.9% 100 ML IV ONE (06:39)
[2020-07-09] MEDS ORDERED: REMDESIVIR 200 MG in Sodium Chloride 0.9% 250 ML IV ONE (06:51)
[2020-07-09] MEDS ORDERED: Dexamethasone 4 MG/ML SDV IVPUSH ONE (06:51)
--- NOTE | 2020-07-09 09:02 | CR ---
Chest: Portable view of the chest was obtained. Comparison: Prior chest x-ray of 08/29/18. Decreased reticulonodular appearance within both lungs is noted as compared to prior study. Heart size and mediastinum are within normal limits for portable technique. No acute parenchymal change is appreciated. No acute osseous abnormality is appreciated. Impression: 1. Slightly improved lung cid from prior exam. 2. Nothing acute is identified on portable chest x-ray. Diagnostic code #2
== END 2020-07-09 08:25 ==
LOC: JD.ED 02:55
DX: U07.1 COVID-19 (principal); J12.82 Pneumonia due to coronavirus disease 2019; A41.9 Sepsis, unspecified organism; E83.42 Hypomagnesemia; M31.31 Wegener's granulomatosis with renal involvement; I50.20 Unspecified systolic (congestive) heart failure; I50.30 Unspecified diastolic (congestive) heart failure; K21.9 Gastro-esophageal reflux disease without esophagitis; N18.9 Chronic kidney disease, unspecified; Z79.899 Other long term (current) drug therapy
CPT/HCPCS: 0240U; 36415; 36600; 71045; 80053; 80076; 81001; 82803; 83605; 83735; 85007; 85027; 87040; 93005; 96365; 96367; 96375; 99285; J0696; J1100; J3475; J7030; J7050; 93010

== ENCOUNTER 2020-08-31 10:12 | Emergency (ER) | payer MEDICARE, BC ==
[2020-08-31] MEDS ORDERED: Sodium Chloride 0.9% 10 ML Syringe FLUSH PRN (11:05)
[2020-08-31] MEDS ORDERED: Acetaminophen 325 MG Tab PO ONE ×2 (11:08→17:50)
[2020-08-31] MEDS ORDERED: Ondansetron 4 MG/2 ML SDV IVPUSH ONE (11:08)
[2020-08-31] MEDS ORDERED: Sodium Chloride 0.9% 1,000 ML IV SCH (11:15)
--- NOTE | 2020-08-31 12:37 | EDM.PDOC ---
ED HPI GENERAL MEDICAL PROBLEM - General Chief Complaint: Respiratory Problem Stated Complaint: [facility] Time Seen by Provider: 08/31/20 10:42 Source of Information: Reports: Patient, Family (spouse), RN Notes Reviewed - History of Present Illness INITIAL COMMENTS - FREE TEXT/NARRATIVE: 54 yr old male comes in by ambulance short of breath, weak, dizzy. He was diagnosed with covid pneumonia about 7 wks ago, transferred to [place] for a 5 day hospital admission. He has never recovered to anywhere near normal since hospital discharge. He has had continued sx of cough, dyspnea, weakness, intermitent fever/chills, comes in with fever, chills, this morning. Has severe dyspnea with exertion. 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 Has been told that he may have "long covid". - Related Data Allergies Allergy/AdvReac Type Severity Reaction Status Date / Time No Known Allergies Allergy Verified 08/31/20 10:26 Home Meds: Home Meds Escitalopram [Lexapro] 15 mg PO DAILY 08/29/18 [History] Magnesium Oxide/Magnesium [Magnesium] 300 mg PO DAILY 08/29/18 [History] Pantoprazole [ProTONIX] 40 mg PO DAILY 08/29/18 [History] ALPRAZolam [Xanax] 1 tab PO BEDTIME 07/09/20 [History] Cyclobenzaprine [Flexeril] 1 tab PO ASDIRECTED PRN 07/09/20 [History] Hydrocodone/Acetaminophen [Hydrocodone-Acetamin 10-325 mg] 1 tab PO Q4H PRN 07/09/20 [History] NIFEdipine [Procardia Xl] 1 tab PO DAILY 07/09/20 [History] Sennosides/Docusate Sodium [Senna-Docusate Sodium Tablet] 1 tab PO BID 07/09/20 [History] Sulfamethoxazole/Trimethoprim [Bactrim Ds Tablet] 1 tab PO ASDIRECTED 07/09/20 [History] Zolpidem [Ambien] 10 mg PO BEDTIME 07/09/20 [History] predniSONE [Prednisone] 10 mg PO ASDIRECTED 07/09/20 [History] Albuterol Sulfate [Albuterol Sulfate HFA] 2 puff INH Q4HR PRN 08/31/20 [History] Cefpodoxime [Vantin] 0.5 tab PO BID 08/31/20 [History] Cyclophosphamide 2 cap PO DAILY 08/31/20 [History] Ferrous Sulfate [Slow Fe] 1 tab PO DAILY 08/31/20 [History] Past Medical History Cardiovascular History: Reports: Heart Failure Gastrointestinal History: Reports: GERD Genitourinary History: Reports: Chronic Renal Insuffiency Neurological History: Reports: Other (See Below) Other Neuro History: Guillan [place] in 2017, Psychiatric History: Reports: Anxiety, Depression Immunologic History: Reports: Other (See Below) Dermatologic History: Reports: Other (See Below) Other Dermatologic History: Currently pt has purple spots/blotches to his feet and some red raised lumps. the right foot has a round purple spot smaller than a dime under the pad of his left toe(ball of foot). Left medial foot has some pink raised bumps and to his left foot pad and toes pt has purple spots all over the pad and toes. The left foot is sensitive to touch for him. pt reports since these spots showed up they are painful for him to stand on and he has to use a can now due to this. 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 report that the left he can't feel from ankles down at all nad the right he has some sensation. Musculoskeletal Surgical History: Reports: Amputation Dermatological Surgical History: Reports: None Social & Family History - Family History Family Medical History: No Pertinent Family History - Tobacco Use Tobacco Use Status *Q: Never Tobacco User Second Hand Smoke Exposure: No - Caffeine Use Caffeine Use: Reports: None - Recreational Drug Use Recreational Drug Use: No - Living Situation & Occupation Living situation: Reports: , with Spouse Occupation: Disabled ED ROS GENERAL - Review of Systems Review Of Systems: See Below Constitutional: Reports: Fever, Chills, Weakness, Fatigue, Decreased Appetite HEENT: Denies: Rhinitis, Throat Pain Respiratory: Reports: Shortness of Breath, Cough. Denies: Pleuritic Chest Pain Cardiovascular: Reports: Dyspnea on Exertion, Lightheadedness. Denies: Chest Pain GI/Abdominal: Reports: Decreased Appetite, Nausea. Denies: Abdominal Pain, Diarrhea, Vomiting Musculoskeletal: Reports: Other (generalized achiness) Skin: Denies: Rash Neurological: Reports: Dizziness, Weakness. Denies: Trouble Speaking ED EXAM, GENERAL - Physical Exam Exam: See Below General Appearance: Alert, Moderate Distress Eye Exam: Bilateral Eye: PERRL Throat/Mouth: Other (dry mouth) Head: Atraumatic Neck: Supple, Other (no JVD) Respiratory/Chest: Respiratory Distress (moderate tachypnea). No: Rales, Rhonchi, Wheezing Cardiovascular: Tachycardia GI/Abdominal: Soft, Non-Tender Back Exam: No: CVA Tenderness (L), CVA Tenderness (R) Extremities: Normal Inspection. No: Pedal Edema, Leg Pain, Increased Warmth, Redness Neurological: Alert, Oriented Skin Exam: Warm, Dry, Normal Color, No Rash #1 Interpretation EKG Date: 08/31/20 Rhythm: Other (sinus tach) [place]: Normal P-Wave: Present QRS: Other (q waves V2 and V3) ST-T: Other (non specific st changes) Course - Vital Signs Last Recorded V/S: Last Vital Signs Temp 100.3 F 08/31/20 11:24 Pulse 130 H 08/31/20 10:20 Resp 22 H 08/31/20 10:20 BP 140/69 08/31/20 10:20 Pulse Ox 97 08/31/20 10:20 - Orders/Labs/Meds Orders: Active Orders 24 hr Category Date Time Status EKG 12 Lead [EKG Documentation Completion] [RC] STAT Care 08/31/20 14:50 Active Oxygen Therapy [RC] ASDIRECTED Care 08/31/20 11:04 Active Peripheral IV Care [RC] . DIRECTED Care 08/31/20 11:05 Active CULTURE BLOOD [BC] Stat Lab 08/31/20 11:25 Received Sodium Chloride 0.9% [Normal Saline] 1,000 ml Med 08/31/20 11:15 Active IV ONETIME Sodium Chloride 0.9% [Saline Flush] Med 08/31/20 11:05 Active 10 ml FLUSH ASDIRECTED PRN Peripheral IV Insertion Adult [OM.PC] Stat Oth 08/31/20 11:04 Ordered Medication Orders Sodium Chloride (Normal Saline) 1,000 mls @ 999 mls/hr IV ONETIME GERMANIA Last Infusion: 08/31/20 11:54 Dose: 150 mls/hr Documented by: Admin: 08/31/20 11:24 Dose: 999 mls/hr Documented by: DAVON Sodium Chloride (Sodium Chloride 0.9% 10 Ml Syringe) 10 ml FLUSH ASDIRECTED PRN PRN Reason: Keep Vein Open Last Admin: 08/31/20 12:08 Dose: 10 ml Documented by: SHELDON Labs: Laboratory Tests 08/31/20 08/31/20 08/31/20 Range/Units 11:25 11:25 11:25 WBC 5.36 (4.23-9.07) K/mm3 RBC 2.61 L (4.63-6.08) M/mm3 Hgb 7.5 L D (13.7-17.5) gm/dl Hct 24.9 L (40.1-51.0) % MCV 95.4 H (79.0-92.2) fl MCH 28.7 (25.7-32.2) pg MCHC 30.1 L (32.2-35.5) g/dl RDW Std Deviation 54.0 H (35.1-43.9) fL Plt Count 283 D (163-337) K/mm3 MPV 10.3 (9.4-12.3) fl Neut % (Auto) 86.0 H (34.0-67.9) % Lymph % (Auto) 1.9 L (21.8-53.1) % [place] % (Auto) 10.8 (5.3-12.2) % Eos % (Auto) 0.7 L (0.8-7.0) Baso % (Auto) 0.2 (0.1-1.2) % Neut # (Auto) 4.61 (1.78-5.38) K/mm3 Lymph # (Auto) 0.10 L (1.32-3.57) K/mm3 [place] # (Auto) 0.58 (0.30-0.82) K/mm3 Eos # (Auto) 0.04 (0.04-0.54) K/mm3 Baso # (Auto) 0.01 (0.01-0.08) K/mm3 Manual Slide Review Abnormal smear D-Dimer, Quantitative 2.38 H (0.19-0.50) mg/L Sodium (136-145) mEq/L Potassium (3.5-5.1) mEq/L Chloride (98-107) mEq/L Carbon Dioxide (21-32) mEq/L Anion Gap (5-15) BUN (7-18) mg/dL Creatinine (0.7-1.3) mg/dL Est Cr Clr Drug Dosing mL/min Estimated GFR (MDRD) (>60) mL/min BUN/Creatinine Ratio (14-18) Glucose (70-99) mg/dL Lactic Acid (0.4-2.0) mmol/L Calcium (8.5-10.1) mg/dL Ferritin (26-388) ng/ml Total Bilirubin (0.2-1.0) mg/dL AST (15-37) U/L ALT (16-63) U/L Alkaline Phosphatase (46-116) U/L Lactate Dehydrogenase (85-227) U/L Troponin I (0.00-0.056) ng/mL C-Reactive Protein 33.3 H* (<1.0) mg/dL NT-Pro-B Natriuret Pep (0-125) pg/mL Total Protein (6.4-8.2) g/dl Albumin (3.4-5.0) g/dl Globulin gm/dL Albumin/Globulin Ratio (1-2) SARS-CoV-2 RNA (HENNY) (NEGATIVE) 08/31/20 08/31/20 08/31/20 Range/Units 11:25 11:25 11:25 WBC (4.23-9.07) K/mm3 RBC (4.63-6.08) M/mm3 Hgb (13.7-17.5) gm/dl Hct (40.1-51.0) % MCV (79.0-92.2) fl MCH (25.7-32.2) pg MCHC (32.2-35.5) g/dl RDW Std Deviation (35.1-43.9) fL Plt Count (163-337) K/mm3 MPV (9.4-12.3) fl Neut % (Auto) (34.0-67.9) % Lymph % (Auto) (21.8-53.1) % [place] % (Auto) (5.3-12.2) % Eos % (Auto) (0.8-7.0) Baso % (Auto) (0.1-1.2) % Neut # (Auto) (1.78-5.38) K/mm3 Lymph # (Auto) (1.32-3.57) K/mm3 [place] # (Auto) (0.30-0.82) K/mm3 Eos # (Auto) (0.04-0.54) K/mm3 Baso # (Auto) (0.01-0.08) K/mm3 Manual Slide Review D-Dimer, Quantitative (0.19-0.50) mg/L Sodium 134 L (136-145) mEq/L Potassium 4.0 (3.5-5.1) mEq/L Chloride 101 (98-107) mEq/L Carbon Dioxide 16 L (21-32) mEq/L Anion Gap 21.0 H (5-15) BUN 39 H (7-18) mg/dL Creatinine 3.3 H (0.7-1.3) mg/dL Est Cr Clr Drug Dosing 28.23 mL/min Estimated GFR (MDRD) 20 (>60) mL/min BUN/Creatinine Ratio 11.8 L (14-18) Glucose 128 H (70-99) mg/dL Lactic Acid (0.4-2.0) mmol/L Calcium 8.6 (8.5-10.1) mg/dL Ferritin 4738 H (26-388) ng/ml Total Bilirubin 0.3 (0.2-1.0) mg/dL AST 19 (15-37) U/L ALT 12 L (16-63) U/L Alkaline Phosphatase 112 (46-116) U/L Lactate Dehydrogenase 249 H (85-227) U/L Troponin I 0.026 (0.00-0.056) ng/mL C-Reactive Protein (<1.0) mg/dL NT-Pro-B Natriuret Pep 2330 H (0-125) pg/mL Total Protein 7.5 (6.4-8.2) g/dl Albumin 2.6 L (3.4-5.0) g/dl Globulin 4.9 gm/dL Albumin/Globulin Ratio 0.5 L (1-2) SARS-CoV-2 RNA (HENNY) (NEGATIVE) 08/31/20 08/31/20 Range/Units 11:25 11:25 WBC (4.23-9.07) K/mm3 RBC (4.63-6.08) M/mm3 Hgb (13.7-17.5) gm/dl Hct (40.1-51.0) % MCV (79.0-92.2) fl MCH (25.7-32.2) pg MCHC (32.2-35.5) g/dl RDW Std Deviation (35.1-43.9) fL Plt Count (163-337) K/mm3 MPV (9.4-12.3) fl Neut % (Auto) (34.0-67.9) % Lymph % (Auto) (21.8-53.1) % [place] % (Auto) (5.3-12.2) % Eos % (Auto) (0.8-7.0) Baso % (Auto) (0.1-1.2) % Neut # (Auto) (1.78-5.38) K/mm3 Lymph # (Auto) (1.32-3.57) K/mm3 [place] # (Auto) (0.30-0.82) K/mm3 Eos # (Auto) (0.04-0.54) K/mm3 Baso # (Auto) (0.01-0.08) K/mm3 Manual Slide Review D-Dimer, Quantitative (0.19-0.50) mg/L Sodium (136-145) mEq/L Potassium (3.5-5.1) mEq/L Chloride (98-107) mEq/L Carbon Dioxide (21-32) mEq/L Anion Gap (5-15) BUN (7-18) mg/dL Creatinine (0.7-1.3) mg/dL Est Cr Clr Drug Dosing mL/min Estimated GFR (MDRD) (>60) mL/min BUN/Creatinine Ratio (14-18) Glucose (70-99) mg/dL Lactic Acid 1.2 (0.4-2.0) mmol/L Calcium (8.5-10.1) mg/dL Ferritin (26-388) ng/ml Total Bilirubin (0.2-1.0) mg/dL AST (15-37) U/L ALT (16-63) U/L Alkaline Phosphatase (46-116) U/L Lactate Dehydrogenase (85-227) U/L Troponin I (0.00-0.056) ng/mL C-Reactive Protein (<1.0) mg/dL NT-Pro-B Natriuret Pep (0-125) pg/mL Total Protein (6.4-8.2) g/dl Albumin (3.4-5.0) g/dl Globulin gm/dL Albumin/Globulin Ratio (1-2) SARS-CoV-2 RNA (HENNY) Negative (NEGATIVE) Meds: Medications Generic Name Dose Route Start Last Admin Trade Name Fernando PRN Reason Stop Dose Admin Sodium Chloride 1,000 mls @ 999 mls/hr 08/31/20 11:15 08/31/20 11:54 Normal Saline IV 150 mls/hr ONETIME GERMANIA Infusion Sodium Chloride 10 ml 08/31/20 11:05 08/31/20 12:08 Sodium Chloride 0.9% 10 Ml Syringe FLUSH 10 ml ASDIRECTED PRN Administration Keep Vein Open Discontinued Medications Generic Name Dose Route Start Last Admin Trade Name Fernando PRN Reason Stop Dose Admin Acetaminophen 975 mg 08/31/20 11:08 08/31/20 11:24 Acetaminophen 325 Mg Tab PO 08/31/20 11:09 975 mg NOW ONE Administration Piperacillin Sod/Tazobactam 100 mls @ 200 mls/hr 08/31/20 14:59 08/31/20 15:18 Sod 4.5 gm/ Sodium Chloride IV 08/31/20 15:28 200 mls/hr ONETIME ONE Administration Vancomycin HCl 1 gm/ Sodium 250 mls @ 250 mls/hr 08/31/20 16:00 08/31/20 16:22 Chloride IV 08/31/20 16:59 250 mls/hr ONETIME ONE Administration Ondansetron HCl 4 mg 08/31/20 11:08 08/31/20 11:24 Ondansetron 4 Mg/2 Ml Sdv IVPUSH 08/31/20 11:09 4 mg ONETIME ONE Administration - Re-Assessments/Exams Free Text/Narrative Re-Assessment/Exam: 08/31/20 15:03 CXR shows major bilat infiltrates, much worse than July 09. WBC normal but CRP is 33, creat 3.3, BUN 39. Sats were 87 to 89 % at time of triage. He is complicated with hx of Manquin's, G. , has current anemia with hgb 7.5, renal insufficiency. He needs higher level of care. Arrangements made for transfer to [facility], They are full but will have a bed within 3 hrs so asking we hold him for 90 minutes before sending him out. IV Vancomycin and zosyn ordered. Have discussed with Dr Kendall, Hospitalist [facility]. We will be sending him by ground ambulance. 16:00. EMS has notified us they do not have a crew available. Won't have a crew until change of shift. Anticipate that he will be able to go at that time. 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: with renal involvement Qualified Code(s): M31.31 - Laura's granulomatosis with renal involvement Anemia Qualifiers: Anemia type: unspecified type Qualified Code(s): D64.9 - Anemia, unspecified - Discharge Information Referrals: PCP,None [Primary Care Provider] - Forms: ED Department Discharge Sepsis Event Note (ED) - Evaluation Sepsis Screening Result: Possible Sepsis Risk - Focused Exam Vital Signs: Vital Signs Temp Temp Pulse Resp BP Pulse Ox 08/31/20 11:24 100.3 F 08/31/20 10:20 100.3 F 130 H 22 H 140/69 97 - My Orders Last 24 Hours: My Active Orders 08/31/20 11:04 Oxygen Therapy [RC] ASDIRECTED Peripheral IV Insertion Adult [OM.PC] Stat 08/31/20 11:05 Peripheral IV Care [RC] . DIRECTED Sodium Chloride 0.9% [Saline Flush] 10 ml FLUSH ASDIRECTED PRN 08/31/20 11:15 Sodium Chloride 0.9% [Normal Saline] 1,000 ml IV ONETIME 08/31/20 11:25 CULTURE BLOOD [BC] Stat 08/31/20 14:50 EKG 12 Lead [EKG Documentation Completion] [RC] STAT - Assessment/Plan Last 24 Hours: My Active Orders 08/31/20 11:04 Oxygen Therapy [RC] ASDIRECTED Peripheral IV Insertion Adult [OM.PC] Stat 08/31/20 11:05 Peripheral IV Care [RC] . DIRECTED Sodium Chloride 0.9% [Saline Flush] 10 ml FLUSH ASDIRECTED PRN 08/31/20 11:15 Sodium Chloride 0.9% [Normal Saline] 1,000 ml IV ONETIME 08/31/20 11:25 CULTURE BLOOD [BC] Stat 08/31/20 14:50 EKG 12 Lead [EKG Documentation Completion] [RC] STAT
--- NOTE | 2020-08-31 13:19 | CR ---
Chest: Portable view of the chest was obtained. Comparison: Prior chest x-ray of 07/09/20. Diffuse increased density is identified within both sides of the chest. Findings have significantly worsened from previous study. Heart size and mediastinum are normal. No acute osseous finding is appreciated. Impression: 1. Significant worsening density within both sides of the chest compatible with worsening COVID pneumonia. Diagnostic code #3
[2020-08-31] MEDS ORDERED: Piperacillin/Tazobactam 4.5 GM in Sodium Chloride 0.9% 100 ML IV ONE (14:59)
[2020-08-31] MEDS ORDERED: Lactated Ringers 1,000 ML IV SCH (18:15)
== END 2020-08-31 18:35 ==
LOC: JD.ED 10:12
DX: J18.9 Pneumonia, unspecified organism (principal); M31.31 Wegener's granulomatosis with renal involvement; D64.9 Anemia, unspecified; R09.02 Hypoxemia; N18.9 Chronic kidney disease, unspecified; I50.9 Heart failure, unspecified; K21.9 Gastro-esophageal reflux disease without esophagitis; Z20.822 Contact with and (suspected) exposure to COVID-19; Z79.899 Other long term (current) drug therapy
CPT/HCPCS: 36415; 71045; 80053; 81001; 82728; 83605; 83615; 83880; 84484; 85025; 85379; 86140; 87040; 93005; 94762; 96365; 96366; 96368; 96375; 99285; A9270; J2405; J2543; J3370; J7030; J7050; J7120; U0002; 93010; 99284